=== PATIENT | male | born 1955 | race Two or more races ===

== ENCOUNTER 2022-08-28 11:12 | Emergency (ER) | payer OTHER ==
[2022-08-28] MEDS ORDERED: ACETAMINOPHEN 325 MG TABLET (FP) PO ONE (11:48)
[2022-08-28] MEDS ORDERED: IBUPROFEN 400 MG TABLET (FP) PO ONE ×2 (11:48→12:23)
[2022-08-28 12:18] VITALS: BP 124/72; PULSE 103; RESP 18; TEMP 98.8; BMI 30.7
[2022-08-28] MEDS ORDERED: ACETAMINOPHEN 325 MG TABLET (FP) ONE (12:23)
[2022-08-28 12:37] LABS: THROAT:GRP A STREP NOT DETECTED (NOTDETECTED)
[2022-08-28] MEDS ORDERED: IBUPROFEN 600 MG TABLET (FP) PO ONE (16:59)
[2022-08-28] MEDS ORDERED: ACETAMINOPHEN 500 MG TABLET (FP) PO ONE (16:59)
== END 2022-08-28 18:24 | disposition home or self-care (01) ==
LOC: JER 11:12
DX: U07.1 COVID-19 (principal)
CPT/HCPCS: 0241U-QW; 87651; 99283-25